=== PATIENT | female | born 1985 | race Two or more races ===

== ENCOUNTER 2017-05-31 16:14 | Inpatient (IN) | payer OTHER ==
--- NOTE | 2017-05-31 16:22 | PDOC ---
Rapid Medical Evaluation Chief Complaint: Vaginal Sxs Time Seen by Provider: 05/31/17 16:20 Medical Evaluation: Allergies Allergy/AdvReac Type Severity Reaction Status Date / Time No Known Allergies Allergy Verified 05/31/17 16:16 05/31/17 16:22 Patient is a 32-year-old female who states she is about 23 weeks , has had care, seen at [facility] who has some mucus discharge from her vagina with a little bit of blood in it. Patient needs further evaluation in labor and delivery. No other acute medical issues Discharge Disposition - Discharge Dispostion Last Admission D/C Date: 02/17/08 - Referrals - Patient Instructions - Post Discharge Activity
[2017-05-31 16:25] VITALS: BMI 31.7
[2017-05-31] MEDS ORDERED: DEXTROSE 5%-LACTATED RINGERS 1,000 ML IV SCH (18:00)
--- NOTE | 2017-05-31 18:15 | HP ---
Past Medical History - Admission History of Present Illness: 32yo EDC 09/29/17 presents with c/o vaginal discharge, mucousy ? blood tinged. PNC at [facility]. Pt reports that she thought she saw some blood tinged things in her discharge. Denies any cramping or pain. Pt states that her care is significant for being followed for shortened cervix and being given progesterone suppositories. History Source: Patient Limitations to Obtaining History: No Limitations - Past Medical History Pulmonary: Yes: Asthma ...: 6 ...Para: 3 ...Term: 1 ...: 2 ...Spon : 0 ...Induced : 2 ...Multiple Gestation: 0 ...LMP: 12/19/16 ... Weeks Gestation by Dates: 23.2 ...EDC by Dates: 09/25/17 - Past Surgical History Past Surgical History: Yes: Hx Myomectomy: No Hx Transabdominal Cerclage: No - Smoking History Smoking history: Never smoked Have you smoked in the past 12 months: No - Alcohol/Substance Use Hx Alcohol Use: No History of Substance Use: reports: None Home Medications - Allergies Allergies/Adverse Reactions: Allergies Allergy/AdvReac Type Severity Reaction Status Date / Time No Known Allergies Allergy Verified 05/31/17 17:37 - Home Medications Home Medications: Ambulatory Orders Vit No.130/Iron/FA [ Vitamins] 1 each PO DAILY 05/31/17 Progesterone,Micronized [Progesterone] 100 VG DAILY 05/31/17 Family Disease History - Family Disease History Family History: Unremarkable Review of Systems - Review of Systems Genitourinary: reports: Discharge Integumentary: reports: No Symptoms Neurological: reports: No Symptoms Endocrine: reports: No Symptoms Hematology/Lymphatic: reports: No Symptoms Pain Intensity: 0 Physical Exam - Maternity Vital Signs: Vital Signs Temperature 98.6 F 05/31/17 17:30 Pulse Rate 130 H 05/31/17 17:30 Respiratory Rate 20 05/31/17 17:30 Blood Pressure 135/75 05/31/17 17:30 O2 Sat by Pulse Oximetry (%) 100 05/31/17 16:16 Constitutional: Yes: Well Nourished, No Distress, Calm Eyes: Yes: WNL, Conjunctiva Clear, EOM Intact HENT: Yes: WNL, Atraumatic, Normocephalic Neck: Yes: WNL, Supple, Trachea Midline Cardiovascular: Yes: WNL, Regular Rate and Rhythm Breast(s): Yes: WNL - Abdominal Exam/OB Fundal Height: 23 Number of Fetuses: Single Contractions: No Monitor Mode: External Heart Rate (range): 140 - Vaginal Exam/OB Vaginal Bleediing: No Speculum Exam: Yes (cervix appears dilated; mucousy discharge) Dilatation (cm): 2 Effacement (%): 40 Amniotic Membrane Status: Intact - Physical Exam Musculoskeletal: Yes: WNL Extremities: Yes: WNL Hemorrhage Risk Assessment - Risk Factors Medium Risk Factors: Yes: Prior , uterine surgery,or multiple laparotomies Risk Score: 1 Risk Level: Medium Risk Problem List - Problems (1) Incompetent cervix during second trimester, antepartum Code(s): O34.32 - MATERNAL CARE FOR CERVICAL INCOMPETENCE, SECOND TRIMESTER (2) labor in second trimester Code(s): O60.02 - LABOR WITHOUT DELIVERY, SECOND TRIMESTER Assessment/Plan 32yo at 23.2 weeks gestation noted to be 2cm dilated with membranes at os. History significant for previous deliveries and being followed for short cervix during this . Plan to admit to L&D; for transfer to [facility]-spoke with Dr. Brooks. Transfer accepted 4gms Magnesium sulfate loading followed by maintenance dose of 2gm IVPB/hr ampicillin 2gms IVPB betamethasone 12 mg IM x1 transfer being arranged. Plan discussed with patient
[2017-05-31] MEDS ORDERED: AMPICILLIN SODIUM 2 GM VIAL ONE (18:17)
[2017-05-31] MEDS ORDERED: BETAMET ACET/BETAMET NA PH 30 MG/5 ML VIAL ONE (18:17)
[2017-05-31] MEDS ORDERED: MAGNESIUM 4GM/H20 - 4 GM/100 ML IVPB IVPB ONE (18:17)
[2017-05-31] MEDS ORDERED: AMPICILLIN - 2 GM in SODIUM CHLORIDE 100 ML IVPB ONE (18:22)
[2017-05-31] MEDS ORDERED: BETAMET ACET/BETAMET NA PH 30 MG/5 ML VIAL IM ONE ×2 (18:22→18:30)
[2017-05-31] MEDS ORDERED: MAGNESIUM SULFATE 20GM/500ML - 20 GM/500 ML INFUS.BAG IVPB SCH (18:30)
[2017-05-31] MEDS ORDERED: MAGNESIUM 4GM/H20 - 4 GM/100 ML IVPB IVPB SCH (18:45)
[2017-05-31] MEDS ORDERED: diphenhydrAMINE HCL 25 MG CAPSULE (FP) PO ONE (19:42)
--- NOTE | 2017-05-31 20:23 | RAPID ---
Physical Examination Vital Signs: Vital Signs Temperature 98.6 F 05/31/17 17:30 Pulse Rate 130 H 05/31/17 17:30 Respiratory Rate 20 05/31/17 17:30 Blood Pressure 135/75 05/31/17 17:30 O2 Sat by Pulse Oximetry (%) 100 05/31/17 16:16 Constitutional: Yes: Well Nourished, No Distress, Calm Eyes: Yes: WNL, Conjunctiva Clear, EOM Intact HENT: Yes: Atraumatic, Normocephalic Neck: Yes: Supple, Trachea Midline Cardiovascular: Yes: Regular Rate and Rhythm Respiratory: Yes: Regular, CTA Bilaterally Gastrointestinal: Yes: Other (23 weeks ). No: Tenderness Extremities: Yes: WNL Edema: No Integumentary: Yes: Other (diffuse uticaria over Left UE, back and stomach) Neurological: Yes: Alert, Oriented Rapid Response - Rapid Response Assessment: 32F , 23 weeks , presenting with new onset uticaria to Left UE, back and stomach. Pt received Ampicillin at 6:20pm. Rapid Response called for new onset rash. Pt appears nontoxic and clinically stable. Pt does have uticaria to Left UE, back and torso. No anaphylaxis or angioedema noted. VSS. Afebrile. Slight tachycardia noted, likely 2/2 cervical dilation/pre-term labor. (Pt currently pending transfer to [facility].) Benadryl given. CBC, BMP ordered. Dr. Cabrales aware.
[2017-05-31 20:26] LABS: BASO % 0.6 % (0-2.0); EOS % 0.1 % (0-4.5); MCH 34.1 pg (25.7-33.7); MCHC 34.5 g/dl (32.0-36.0); MEAN CELL VOLUME 98.8 fl (80-96); MEAN PLT VOLUME 9.2 fl (7.5-11.1); NEUT % 84.5 % (42.8-82.8); PLATELET COUNT 204 K/MM3 (134-434); RDW 14.1 % (11.6-15.6); WHITE BLOOD COUNT 13.2 K/mm3 (4.0-10.0)
[2017-05-31 20:51] LABS: ALBUMIN 3.1 g/dl (3.4-5.0); ALK PHOS 55 U/L (45-117); ANION GAP 10 (8-16); BILIRUBIN,TOTAL 0.4 mg/dL (0.2-1.0); CALCIUM 8.1 mg/dL (8.5-10.1); CO2 21 mmol/L (21-32); CREATININE 0.4 mg/dL (0.55-1.02); GLUCOSE,RANDOM 96 mg/dL (74-106); SGOT/AST 17 U/L (15-37); SGPT/ALT 23 U/L (12-78); TOT PROT 7.2 g/dl (6.4-8.2)
[2017-05-31 21:28] VITALS: BP 124/73; PULSE 123; TEMP 99.2
[2017-05-31 22:20] LABS: URINE MARIJUANA THC NEGATIVE ng/ml (CUTOFF=50)
== END 2017-05-31 20:30 | disposition short-term general hospital (02) | DRG 566 ==
LOC: JER 16:14 → JLDR 17:19
PROVIDERS: ADMIT Obstetrics & Gynecology; ATTEND Obstetrics & Gynecology
DX: O34.32 Maternal care for cervical incompetence, second trimester (principal); O60.02 Preterm labor without delivery, second trimester; O26.872 Cervical shortening, second trimester; Z3A.23 23 weeks gestation of pregnancy; O26.892 Other specified pregnancy related conditions, second trimester; L50.9 Urticaria, unspecified
CPT/HCPCS: 36415; 80053; 80307; 85025; 96372; 99283-25

== ENCOUNTER 2017-06-21 13:44 | Emergency (ER) | payer OTHER ==
[2017-06-21 13:49] VITALS: BP 130/70; PULSE 110; TEMP 98.5; BMI 29.8
[2017-06-21] MEDS ORDERED: ALBUTEROL SO4 2.5/IPRATROPIUM 0.5 INH SOL 3 ML VIAL.NEB. NEB ONE (14:40)
--- NOTE | 2017-06-21 14:46 | PDOC ---
History of Present Illness - General Chief Complaint: Respiratory Stated Complaint: ASTHMA Time Seen by Provider: 06/21/17 14:28 History Source: Patient Exam Limitations: No Limitations - History of Present Illness Initial Comments: 06/21/17 14:41 Complaints of cough and cold symptoms for the past few weeks. Is with a very premature , born at 23 weeks. States developed a cold while in the hospital is progressively worsened to where she feels tightness and wheezing. Denies fever, or phlegm production but states is having difficulty with wheezing Timing/Duration: reports: changing over time, getting worse Severity: reports: mild, moderate Associated Symptoms: reports: denies symptoms, cough, fever/chills. denies: headache Past History - Travel Traveled outside of the country in the last 30 days: No Close contact w/someone who was outside of country & ill: No - Past Medical History Allergies/Adverse Reactions: Allergies Allergy/AdvReac Type Severity Reaction Status Date / Time Penicillins Allergy Unknown Verified 06/21/17 14:21 ampicillin Allergy Verified 06/21/17 13:50 Home Medications: Ambulatory Orders Vit No.130/Iron/Folic [ Vitamins] 1 each PO DAILY 05/31/17 Albuterol 0.083% Nebulizer Elle [Ventolin 0.083% Nebulizer Soln -] 1 neb NEB Q4H PRN #30 vial 06/21/17 Ferrous Sulfate 325 mg PO ASDIR 06/21/17 Asthma: Yes Cancer: No Cardiac Disorders: No COPD: No Diabetes: No HTN: No Hypercholesterolemia: Yes Seizures: No Thyroid Disease: No - Surgical History Abdominal Surgery: No - Reproductive History (#): 4 Para: 3 Cervical CA: No Dysfunctional Uterine Bleeding: No Ectopic : No Endometrial CA: No Polycystic Ovaries: No Therapeutic (s) & number: Yes Tubal Ligation: No Spontaneous : 0 - Immunization History Immunization Up to Date: Yes - Suicide/Smoking/Psychosocial Hx Smoking History: Never smoked Have you smoked in the past 12 months: No Hx Alcohol Use: No Drug/Substance Use Hx: No Substance Use Type: None Hx Substance Use Treatment: No Review of Systems - Review of Systems Able to Perform ROS?: Yes Is the patient limited Romanian proficient: Yes Constitutional: Yes: Symptoms Reported, See HPI, Malaise. No: Chills, Fever HEENTM: Yes: Symptoms Reported, See HPI, Nose Congestion. No: Throat Pain Respiratory: Yes: Symptoms reported, See HPI, Cough, Shortness of Breath, Wheezing Musculoskeletal: Yes: Symptoms Reported Integumentary: Yes: Symptoms Reported, See HPI Neurological: Yes: See HPI. No: Symptoms reported All Other Systems: Reviewed and Negative *Physical Exam - Vital Signs Last Vital Signs Temp Pulse Resp BP Pulse Ox 98.5 F 110 H 18 130/70 99 06/21/17 13:47 06/21/17 13:47 06/21/17 13:47 06/21/17 13:47 06/21/17 13:47 - Physical Exam General Appearance: Yes: Nourished, Appropriately Dressed, Apparent Distress. No: Mild Distress HEENT: positive: KAYLEN, TMs Normal. negative: Normal ENT Inspection, Pharynx Normal (congested but landmarks easily visualized) Neck: positive: Supple. negative: Tender, Lymphadenopathy (R), Lymphadenopathy (L) Respiratory/Chest: positive: Lungs Clear, Normal Breath Sounds Cardiovascular: positive: Regular Rate Gastrointestinal/Abdominal: positive: Soft. negative: Tender Extremity: positive: Normal Capillary Refill, Normal Inspection Integumentary: positive: Normal Color, Dry, Warm, Pale Neurologic: positive: wall washer II-XII NML intact, Fully Oriented, Alert, Normal Mood/ Affect, Normal Response Progress Note - Progress Note Progress Note: Common cold with asthmatic times symptoms, much improved after 1 DuoNeb. As patient is recently and breast-feeding will hold on prednisone but will continue albuterol nebs at home and follow up with OB/PMD for further treatment as needed. *DC/Admit/Observation/Transfer Diagnosis at time of Disposition: URI with cough and congestion - Discharge Dispostion Disposition: HOME Condition at time of disposition: Stable Admit: No - Prescriptions Prescriptions: Albuterol 0.083% Nebulizer Elle [Ventolin 0.083% Nebulizer Soln -] 1 neb NEB Q4H PRN #30 vial PRN Reason: Cough - Referrals - Patient Instructions Printed Discharge Instructions: DI for Common Cold Additional Instructions: Rest, drink lots of fluids: Teas, water, soups, Pedialyte Saltwater gargles Steamy showers/seem to face break up mucus Avoid contact with others until fevers and cough resolved Lots of handwashing and good hygiene Continue [id number] medications for symptomatic relief Tylenol or Motrin for fever and pain Continue albuterol nebulizers for the next 2 day then as needed for continued cough Followup with private physician in one to 2 days as needed Return to emergency department for worsened symptoms, fevers, dehydration - Post Discharge Activity
== END 2017-06-21 15:27 | disposition home or self-care (01) ==
LOC: JERFT 13:44
PROC: 3E0F7GC Introduction of Other Therapeutic Substance into Respiratory Tract, Via Natural or Artificial Opening (ICD-10-PCS; principal; 2017-06-21)
DX: O99.89 Other specified diseases and conditions complicating pregnancy, childbirth and the puerperium (principal); J06.9 Acute upper respiratory infection, unspecified
CPT/HCPCS: 94640; 99281-25

== ENCOUNTER 2017-07-18 19:42 | Emergency (ER) | payer OTHER ==
[2017-07-18 20:01] VITALS: BP 119/82; PULSE 87; TEMP 98.8; BMI 29.2
[2017-07-18] MEDS ORDERED: IBUPROFEN 400 MG TABLET (FP) PO ONE ×2 (21:27→21:31)
--- NOTE | 2017-07-18 21:28 | PDOC ---
History of Present Illness <Lauro Baltazar - Last Filed: 07/18/17 23:12> - General History Source: Patient Exam Limitations: No Limitations - History of Present Illness Initial Comments: 07/19/17 00:44 Patient is a 32 year old female with a significant past medical history of asthma, hypertension and thyroid disorder who presents to the ED with complaints of bilateral lower extremity pain that began yesterday morning. Pt notes she has been having brief episode of blurry vision for a few secnods, she put on her glasses and her vision improved. She endorses having a mild headache c/w prior headaches 08/23, nonradiationg, no associated numbness/tingling/ weakness, neck pain, fever/chills. She aslo endorses feeling b/l calf pain since friday - she does endorse wlaking up 5 flights of stairs on friday. She denies any associated cp, sob, hemptysis, swelling of her legs. Denies contact with sick individuals, out of state traveling. Denies trauma to affected area. Denies any other symptoms. Allergies: Penicillin, Ampicillin. Social history: She denies tobacco, ETOH and recreational drug use Surgical history: None PMD: Dr. Josefina Lozano / [phone] <Rik Sr - Last Filed: 07/19/17 00:45> - General Chief Complaint: Blurry Vision Stated Complaint: PAIN Time Seen by Provider: 07/18/17 19:57 Past History - Past Medical History Asthma: Yes Cancer: No Cardiac Disorders: No COPD: No Diabetes: No HTN: No Hypercholesterolemia: Yes Seizures: No Thyroid Disease: Yes - Surgical History Abdominal Surgery: No - Reproductive History (#): 4 Para: 3 Cervical CA: No Dysfunctional Uterine Bleeding: No Ectopic : No Endometrial CA: No Polycystic Ovaries: No Therapeutic (s) & number: Yes Tubal Ligation: No Spontaneous : 0 - Immunization History Immunization Up to Date: Yes - Suicide/Smoking/Psychosocial Hx Smoking History: Never smoked Have you smoked in the past 12 months: No Information on smoking cessation initiated: No Hx Alcohol Use: No Drug/Substance Use Hx: No Substance Use Type: None Hx Substance Use Treatment: No <Lauro Baltazar - Last Filed: 07/18/17 23:12> <Rik Sr - Last Filed: 07/19/17 00:45> - Past Medical History Allergies/Adverse Reactions: Allergies Allergy/AdvReac Type Severity Reaction Status Date / Time Penicillins Allergy Unknown Verified 07/18/17 20:01 ampicillin Allergy Verified 07/18/17 20:01 Home Medications: Ambulatory Orders Vit No.130/Iron/Folic [ Vitamins] 1 each PO DAILY 05/31/17 Albuterol 0.083% Nebulizer Elle [Ventolin 0.083% Nebulizer Soln -] 1 neb NEB Q4H PRN #30 vial 06/21/17 Ferrous Sulfate 325 mg PO ASDIR 06/21/17 Review of Systems - Review of Systems Able to Perform ROS?: Yes Comments:: 07/19/17 00:44 CONSTITUTIONAL: No reported: Fever, Chills, Diaphoresis, Generalized Weakness, Malaise, Loss of Appetite HEENT: No reported: Rhinorrhea, Nasal Congestion, Throat Pain, Throat Swelling, Difficulty Swallowing, Mouth Swelling, Ear Pain, Eye Pain, Visual Changes CARDIOVASCULAR: No reported: Chest Pain, Syncope, Palpitations, Irregular Heart Rate, Lightheadedness, Peripheral Edema RESPIRATORY: No reported: Cough, Shortness of Breath, SOB with Exertion, Orthopnea, Wheezing , Stridor, Hemoptysis GASTROINTESTINAL: No reported: Abdominal pain, Abdominal Distension, Nausea, Vomiting, Diarrhea, Constipation, Melena, Hematochezia GENITOURINARY: No reported: Dysuria, Frequency, Urgency, Hesitancy, Flank Pain, Genital Pain MUSCULOSKELETAL: +Bilateral leg pain. No reported: Arthralgia, Joint Swelling, Back pain, Neck Pain SKIN: No reported: Rash, Itching, Pallor HEMATOLOGIC/IMMUNOLOGIC: No reported: Easy Bleeding, Easy Bruising, Lymphadenopathy, Frequent infections ENDOCRINE: No reported: Unexplained Weight Gain, Unexplained Weight Loss, Heat Intolerance , Cold Intolerance NEUROLOGIC: No reported: Headache, Focal Weakness, Paresthesias, Vertigo, Lightheadedness, Unsteady Gait, Seizure, Mental Status Changes, Incontinence PSYCHIATRIC: No reported: Anxiety, Depression All Other Systems: Reviewed and Negative <Rik Sr - Last Filed: 07/19/17 00:45> *Physical Exam - Vital Signs Last Vital Signs Temp Pulse Resp BP Pulse Ox 98.8 F 87 17 119/82 100 07/18/17 19:58 07/18/17 19:58 07/18/17 19:58 07/18/17 19:58 07/18/17 19:58 <Lauro Baltazar - Last Filed: 07/18/17 23:12> - Vital Signs Last Vital Signs Temp Pulse Resp BP Pulse Ox 98.8 F 87 17 119/82 100 07/18/17 19:58 07/18/17 19:58 07/18/17 19:58 07/18/17 19:58 07/18/17 19:58 - Physical Exam Comments: 07/19/17 00:44 GENERAL: The patient is awake, alert, and fully oriented, Nontoxic - in no acute distress. HEAD: Normocephalic, atraumatic. EYES: extraocular movements intact, sclera anicteric, conjunctiva clear. Pupils 4mm and symmetrically eractive, Snellens: 25/20 b/l, 25/20 R, 25/20 L corrected ENT: Normal voice, Moist mucous membranes. NECK: Normal range of motion, supple LUNGS: Breath sounds equal, clear to auscultation bilaterally. No wheezes, no rhonchi, no rales. HEART: Regular rate and rhythm, normal S1 and S2 without murmur, rub or gallop. ABDOMEN: Soft, nontender, normoactive bowel sounds. No guarding, no rebound. No CVA tenderness EXTREMITIES: Normal range of motion, no edema. mild calf tenderness, negative homans sigs b/lm no signs of erythema, wamrth, induration. NEUROLOGICAL: No facial assymetry, Normal speech, PSYCH: Normal mood, normal affect. SKIN: Warm, Dry, normal turgor, <Rik Sr - Last Filed: 07/19/17 00:45> ED Treatment Course - Medications Given in the ED: ED Medications Discontinued Medications Generic Name Dose Route Start Last Admin Trade Name Freq PRN Reason Stop Dose Admin Ibuprofen 400 mg 07/18/17 21:27 07/18/17 21:32 Motrin - PO 07/18/17 21:28 400 mg ONCE ONE Administration <Rik Sr - Last Filed: 07/19/17 00:45> Medical Decision Making - Medical Decision Making 07/18/17 21:28 32y F approx 6 weeks s/p delivery of a premie presents with complaing of b/l calf pain/cramps since yesterday (preceeding day had been walking up 5 flights of stairs), no associaet cp, sob, palpitations, hemoptysis. Pt also with complaint of brief blurry vision for a few seconds follow by a mild headache ( headaces/vision cw prior episodes that she gets occsaoinally that she attributes to migrain headaches will reassess A portion of this note was documented by scribe services under my direction. I have reviewed the details of the note, within reason, and agree with the documentation with the following case summary and management plan written by me 07/18/17 23:12 pt feeling improved headache resolved b/l calf pain improved I discussed the physical exam findings, ancillary test results and final diagnoses with the patient. I answered all of the patient's questions. The patient was satisfied with the care received and felt comfortable with the discharge plan and treatment plan. The patient will call their primary care physician within 24 hours to arrange follow-up and will return to the Emergency Department with any new, persistent or worsening symptoms. <Lauro Baltazar - Last Filed: 07/18/17 23:12> *DC/Admit/Observation/Transfer - Discharge Dispostion Admit: No <Lauro Baltazar - Last Filed: 07/18/17 23:12> - Attestations Scribe Attestion: 07/19/17 00:45 Documentation prepared by Rik Sr, acting as medical office secretary for Lauro Baltazar MD, /DO. <Rik Sr - Last Filed: 07/19/17 00:45> Diagnosis at time of Disposition: Bilateral calf pain, Headache - Discharge Dispostion Disposition: HOME Condition at time of disposition: Improved - Referrals Referrals: [facility] [place] [Provider Group] - Patient Instructions Printed Discharge Instructions: DI for Migraine Additional Instructions: Return to the emergency department immediately with ANY new, persistent or worsening symptoms including worsening headache, vision changes, numbness/ tingling/weakness, persistent nausea and vomiting or any other concerns. Make sure you are getting adaqute sleep and hydration. You MUST call and follow up with your doctor tomorrow for further evaluation of your symptoms. Your emergency department visit is not complete without a followup with your doctor for reevaluation. Results were discussed with you. Please make sure your doctor reviews the results of your emergency evaluation. If you had any xrays during your visit, it was read preliminarily by myself, a Radiologist will review it and if there are any additional findings we will call you. Print Language: CITIZEN OF [place]
== END 2017-07-18 23:18 | disposition home or self-care (01) ==
LOC: JER 19:42
DX: O90.89 Other complications of the puerperium, not elsewhere classified (principal); M79.605 Pain in left leg; M79.604 Pain in right leg; R51 Headache
CPT/HCPCS: 99283-25

== ENCOUNTER 2024-08-30 18:55 | Emergency (ER) | payer OTHER ==
[2024-08-30 19:09] VITALS: BP 121/85; PULSE 76; RESP 18; TEMP 97.8; BMI 34.3
[2024-08-30 21:28] LABS: BASO % 0.5 % (0-2.0); EOS % 1.5 % (0-4.5); HEMATOCRIT 35.9 % (32.4-45.2); HEMOGLOBIN 12.7 GM/dL (10.7-15.3); LYMPH % 39.6 % (8-40); MCH 33.9 pg (25.7-33.7); MCHC 35.3 g/dl (32.0-36.0); MEAN CELL VOLUME 95.9 fl (80-96); MEAN PLT VOLUME 8.5 fl (7.5-11.1); MONO % 9.7 % (3.8-10.2); NEUT % 48.7 % (42.8-82.8); PLATELET COUNT 322 10^3/uL (134-434); RBC 3.75 M/mm3 (3.60-5.2); RDW 12.8 % (11.6-15.6); WHITE BLOOD COUNT 6.7 K/mm3 (4.0-10.0)
[2024-08-30 21:46] LABS: POTASSIUM 3.5 mmol/L (3.5-5.1)
[2024-08-30 21:49] LABS: ALBUMIN 3.9 g/dl (3.4-5.0)
[2024-08-30 21:52] LABS: CREATININE 0.7 mg/dL (0.55-1.3)
[2024-08-30 21:53] LABS: BILIRUBIN,TOTAL 0.6 mg/dL (0.2-1); TOT PROT 7.7 g/dl (6.4-8.2)
== END 2024-08-30 22:08 | disposition home or self-care (01) ==
LOC: JER 18:55 → JERFT 18:55 → JER 22:08
DX: R07.89 Other chest pain (principal)
CPT/HCPCS: 36415; 71046-TC-FY; 80053; 82550; 84484; 85025; 93005; 93010; 99285-25

== ENCOUNTER 2024-10-27 16:47 | Emergency (ER) | payer OTHER ==
[2024-10-27 16:53] VITALS: BP 124/62; RESP 18; TEMP 98.4; BMI 35.0
[2024-10-27 17:19] VITALS: PULSE 79
[2024-10-27] MEDS ORDERED: KETOROLAC TROMETHAMINE 30 MG/1 ML VIAL ONE (17:26)
[2024-10-27] MEDS: KETOROLAC TROMETHAMINE 30 MG/1 ML VIAL IM ONE (17:33)
== END 2024-10-27 20:05 | disposition home or self-care (01) ==
LOC: JER 16:47 → JERFT 16:47
PROC: 3E0233Z Introduction of Anti-inflammatory into Muscle, Percutaneous Approach (ICD-10-PCS; principal; 2024-10-27)
DX: M25.511 Pain in right shoulder (principal)
CPT/HCPCS: 73030-TC-RT-FY; 99284-25

== ENCOUNTER 2024-10-29 12:19 | Emergency (ER) | payer OTHER ==
[2024-10-29 12:26] VITALS: BP 105/60; PULSE 71; RESP 18; TEMP 98.6; BMI 36.1
[2024-10-29] MEDS ORDERED: CIPROFLOXACIN 250 MG TABLET (RESTRICTED TO ID) PO ONE (13:45)
[2024-10-29] MEDS ORDERED: IBUPROFEN 400 MG TABLET (FP) PO ONE (13:55)
[2024-10-29] MEDS: IBUPROFEN 400 MG TABLET (FP) PO ONE (14:00)
== END 2024-10-29 14:41 | disposition home or self-care (01) ==
LOC: JERFT 12:19
DX: H66.91 Otitis media, unspecified, right ear (principal)
CPT/HCPCS: 99283-25

== ENCOUNTER 2024-11-02 17:29 | Emergency (ER) | payer OTHER ==
[2024-11-02 17:42] VITALS: BP 128/72; PULSE 80; RESP 20; TEMP 99; BMI 36.1
== END 2024-11-02 18:49 | disposition home or self-care (01) ==
LOC: JER 17:29
DX: R10.33 Periumbilical pain (principal); R43.2 Parageusia
CPT/HCPCS: 99283-25

== ENCOUNTER 2025-01-20 15:33 | Emergency (ER) | payer OTHER ==
[2025-01-20 15:50] VITALS: BP 133/69; PULSE 86; RESP 18; TEMP 98.8; BMI 35.4
[2025-01-20] MEDS ORDERED: ACETAMINOPHEN 325 MG TABLET (FP) ONE (16:44)
[2025-01-20] MEDS: ACETAMINOPHEN 325 MG TABLET (FP) PO ONE (16:55)
[2025-01-20 17:26] LABS: ABSOLUTE IMMATURE GRANULOCYTES 0.03 x10^3/uL (0.0-0.031); BASOPHILS # 0.02 x10^3/uL (0.01-0.08); EOSINOPHIL % 0.7 % (0.7-5.8); EOSINOPHILS # 0.05 x10^3/uL (0.04-0.36); MCHC 34.7 g/dl (32.2-35.5); MEAN CELL VOLUME 95.8 fl (79.4-94.8); MEAN PLT VOLUME 10.5 fl (9.4-12.3); MONOCYTE # 0.65 x10^3/uL (0.24-0.86); MONOCYTE % 9.0 % (4.7-12.5); RDW 12.4 % (12.1-16.8)
[2025-01-20 17:36] LABS: CO2 27.0 mmol/L (21-32); GLUCOSE,RANDOM 90.0 mg/dL (74-106)
[2025-01-20 17:39] LABS: CREATININE 0.8 mg/dL (0.55-1.3); SGOT/AST 24.0 U/L (15-37); SGPT/ALT 25.0 U/L (13-61)
[2025-01-20 17:41] LABS: TOT PROT 8.4 g/dl (6.4-8.2)
[2025-01-20 17:42] LABS: ALK PHOS 56.0 U/L (45-117)
[2025-01-20 17:56] LABS: EPI CELLS >36 /uL (0-25.1); HYALINE CASTS 0 /uL (0-3.1); URINE APPEARANCE CLOUDY; URINE BACTERIA 826 /uL (0-1359); URINE BILIRUBIN NEGATIVE (NEGATIVE); URINE COLOR YELLOW; URINE GLUCOSE (UA) NEGATIVE (NEGATIVE); URINE KETONE NEGATIVE (NEGATIVE); URINE LEUK ESTERASE TRACE (NEGATIVE); URINE NITRITE NEGATIVE (NEGATIVE); URINE PROTEIN NEGATIVE (NEGATIVE); URINE RBC 11 /uL (0-23.9); URINE UROBILINOGEN 0.2 mg/dL (0.2-1.0); URINE WBC 6 /uL (0-25.8)
[2025-01-23 03:30] LABS: HCV DIAGNOSTIC IN-HOUSE W/RFLX NON-REACTIVE (NONREACTIVE)
[2025-01-23 14:36] LABS: HIV INTERPRETATION NEGATIVE (NEGATIVE)
== END 2025-01-20 18:18 | disposition home or self-care (01) ==
LOC: JER 15:33
DX: R42 Dizziness and giddiness (principal); H53.8 Other visual disturbances
CPT/HCPCS: 36415; 76512; 80053; 81003; 84484; 84703; 85025; 86803; 87086; 87389; 93005; 93010; 99285-25

== ENCOUNTER 2025-03-05 21:46 | Emergency (ER) | payer OTHER ==
[2025-03-05 21:53] VITALS: RESP 18; TEMP 98.2; BMI 35.0
[2025-03-05] MEDS ORDERED: ONDANSETRON 4 MG/2 ML VIAL ONE (22:44)
[2025-03-05] MEDS ORDERED: FAMOTIDINE 20 MG/50 ML IVPB 20 MG/50 ML MG IVPB ONE (22:44)
[2025-03-05] MEDS ORDERED: MAG HYDROX/AL HYDROX/SIMETH 30 ML UNIT-DOSE CUP ONE (22:44)
[2025-03-05] MEDS ORDERED: ACETAMINOPHEN INJECTION 100 ML ONE (22:44)
[2025-03-05] MEDS: MAG HYDROX/AL HYDROX/SIMETH 30 ML UNIT-DOSE CUP PO ONE (22:55)
[2025-03-05] MEDS: FAMOTIDINE 20 MG/50 ML IVPB 20 MG/50 ML MG IVPB ONE (22:55)
[2025-03-05] MEDS: ONDANSETRON 4 MG/2 ML VIAL IVPUSH ONE (22:55)
[2025-03-05] MEDS: LACTATED RINGERS SOLUTION 1000 ML INFUS.BAG IV ONE (22:55)
[2025-03-05] MEDS: ACETAMINOPHEN 1000 MG/100 ML BAG IVPB ONE (23:02)
[2025-03-05 23:17] LABS: MCHC 34.9 g/dl (32.2-35.5); MEAN CELL VOLUME 96.7 fl (79.4-94.8); MEAN PLT VOLUME 10.7 fl (9.4-12.3); RDW 12.4 % (12.1-16.8)
[2025-03-05 23:27] LABS: INR 0.94 (0.83-1.09); PROTHROMBIN TIME (PATIENT) 10.3 SEC (9.7-13.0)
[2025-03-05 23:30] LABS: ACTIVATED PTT 30.0 SECONDS (25.2-36.5)
[2025-03-05 23:43] LABS: GLUCOSE,RANDOM 90.0 mg/dL (74-106); TOT PROT 8.4 g/dl (6.4-8.2)
[2025-03-05 23:44] LABS: CO2 24.0 mmol/L (21-32)
[2025-03-05 23:46] LABS: ALK PHOS 72.0 U/L (40-150)
[2025-03-05 23:48] LABS: SGOT/AST 28.0 U/L (5-34); SGPT/ALT 20.0 U/L (0-55)
[2025-03-05 23:49] LABS: CREATININE 0.61 mg/dL (0.55-1.3)
[2025-03-06] MEDS ORDERED: DEXAMETHASONE SOD PHOSPHATE 10 MG/1 ML VIAL ONE ×2 (00:19→00:20)
[2025-03-06] MEDS ORDERED: KETOROLAC TROMETHAMINE 15 MG/ML VIAL ONE (00:20)
[2025-03-06] MEDS: DEXAMETHASONE SOD PHOSPHATE 10 MG/1 ML VIAL IVPUSH ONE (00:21)
[2025-03-06] MEDS: KETOROLAC TROMETHAMINE 15 MG/ML VIAL IVPUSH ONE (00:21)
[2025-03-06 01:08] VITALS: BP 112/71; PULSE 64
== END 2025-03-06 01:09 | disposition home or self-care (01) ==
LOC: JER 21:46
PROC: 3E033GC Introduction of Other Therapeutic Substance into Peripheral Vein, Percutaneous Approach (ICD-10-PCS; principal; 2025-03-05)
PROC: 3E033NZ Introduction of Analgesics, Hypnotics, Sedatives into Peripheral Vein, Percutaneous Approach (ICD-10-PCS; 2025-03-05)
PROC: 3E033GC Introduction of Other Therapeutic Substance into Peripheral Vein, Percutaneous Approach (ICD-10-PCS; 2025-03-05)
PROC: 3E0333Z Introduction of Anti-inflammatory into Peripheral Vein, Percutaneous Approach (ICD-10-PCS; 2025-03-06)
PROC: 3E033GC Introduction of Other Therapeutic Substance into Peripheral Vein, Percutaneous Approach (ICD-10-PCS; 2025-03-06)
DX: K29.70 Gastritis, unspecified, without bleeding (principal); M54.50 Low back pain, unspecified; G89.29 Other chronic pain; R07.9 Chest pain, unspecified; K30 Functional dyspepsia
CPT/HCPCS: 36415; 71045-TC-FY; 80053; 83690; 83735; 84484; 85025; 85610; 85730; 93005; 93010; 99285-25; J1100

== ENCOUNTER 2025-03-28 14:37 | Emergency (ER) | payer OTHER ==
[2025-03-28 14:51] VITALS: BP 136/71; PULSE 86; RESP 18; TEMP 98.2; BMI 36.1
[2025-03-28] MEDS ORDERED: PANTOPRAZOLE 40 MG TABLET PO ONE (15:15)
[2025-03-28] MEDS ORDERED: MAG HYDROX/AL HYDROX/SIMETH 30 ML UNIT-DOSE CUP ONE (15:15)
[2025-03-28] MEDS ORDERED: FAMOTIDINE 20 MG TABLET ONE (15:15)
[2025-03-28] MEDS ORDERED: KETOROLAC TROMETHAMINE 30 MG/1 ML VIAL ONE (15:15)
[2025-03-28] MEDS ORDERED: LIDOCAINE 5% TOPICAL PATCH ONE (15:16)
[2025-03-28] MEDS: KETOROLAC TROMETHAMINE 30 MG/1 ML VIAL IM ONE (15:24)
[2025-03-28] MEDS: LIDOCAINE 5% TOPICAL PATCH TP ONE (15:24)
[2025-03-28] MEDS: FAMOTIDINE 20 MG TABLET PO ONE (15:25)
[2025-03-28] MEDS: PANTOPRAZOLE 40 MG TABLET PO ONE (15:25)
[2025-03-28] MEDS: MAG HYDROX/AL HYDROX/SIMETH 30 ML UNIT-DOSE CUP PO ONE (15:25)
[2025-03-28] MEDS ORDERED: LIDOCAINE PATCH REMOVAL MC SCH (22:00)
== END 2025-03-28 16:43 | disposition home or self-care (01) ==
LOC: JER 14:37
PROC: 3E0233Z Introduction of Anti-inflammatory into Muscle, Percutaneous Approach (ICD-10-PCS; principal; 2025-03-28)
DX: M54.50 Low back pain, unspecified (principal)
CPT/HCPCS: 96372; 99284-25

== ENCOUNTER 2025-04-03 13:47 | Emergency (ER) | payer OTHER ==
[2025-04-03 14:00] VITALS: BP 114/58; PULSE 74; RESP 18; TEMP 98.5; BMI 36.1
[2025-04-03] MEDS ORDERED: NAPROXEN 500 MG TABLET ONE (16:12)
[2025-04-03] MEDS: NAPROXEN 500 MG TABLET PO ONE (16:17)
== END 2025-04-03 16:17 | disposition home or self-care (01) ==
LOC: JERFT 13:47
DX: M72.2 Plantar fascial fibromatosis (principal); M79.672 Pain in left foot
CPT/HCPCS: 73630-TC-LT; 99283-25

== ENCOUNTER 2025-04-09 20:24 | Emergency (ER) | payer OTHER ==
[2025-04-09 20:30] VITALS: RESP 18; BMI 36.1
[2025-04-09 21:57] LABS: ABSOLUTE IMMATURE GRANULOCYTES 0.03 x10^3/uL (0.0-0.031); BASOPHILS # 0.04 x10^3/uL (0.01-0.08); EOSINOPHIL % 1.3 % (0.7-5.8); EOSINOPHILS # 0.10 x10^3/uL (0.04-0.36); MCHC 35.0 g/dl (32.2-35.5); MEAN CELL VOLUME 98.2 fl (79.4-94.8); MEAN PLT VOLUME 10.4 fl (9.4-12.3); MONOCYTE # 1.15 x10^3/uL (0.24-0.86); MONOCYTE % 15.1 % (4.7-12.5); RDW 12.7 % (12.1-16.8)
[2025-04-09] MEDS ORDERED: ACETAMINOPHEN INJECTION 100 ML ONE (22:03)
[2025-04-09] MEDS: ACETAMINOPHEN 1000 MG/100 ML BAG IVPB ONE (22:10)
[2025-04-09] MEDS: SODIUM CHLORIDE 0.9% 500 ML INFUS.BAG IV ONE (22:10)
[2025-04-09 22:19] LABS: GLUCOSE,RANDOM 89.0 mg/dL (74-106); TOT PROT 8.3 g/dl (6.4-8.2)
[2025-04-09 22:21] LABS: CO2 22.0 mmol/L (21-32)
[2025-04-09 22:22] LABS: ALK PHOS 60.0 U/L (40-150)
[2025-04-09 22:25] LABS: CREATININE 0.64 mg/dL (0.55-1.3); SGOT/AST 46.0 U/L (5-34); SGPT/ALT 24.0 U/L (0-55)
[2025-04-09 22:45] LABS: HCV DIAGNOSTIC IN-HOUSE W/RFLX NON-REACTIVE (NONREACTIVE)
[2025-04-10 00:10] LABS: HIV INTERPRETATION NEGATIVE (NEGATIVE)
[2025-04-10] MEDS ORDERED: FLUCONAZOLE 150 MG TABLET PO ONE (00:30)
[2025-04-10] MEDS ORDERED: AZITHROMYCIN 500 MG TABLET ONE (00:30)
[2025-04-10 00:52] VITALS: BP 128/82; PULSE 66; TEMP 97.9
[2025-04-10] MEDS: AZITHROMYCIN 500 MG TABLET PO ONE (00:54)
[2025-04-10] MEDS: FLUCONAZOLE 50 MG TABLET PO ONE (00:54)
== END 2025-04-10 01:34 | disposition home or self-care (01) ==
LOC: JER 20:24
PROC: 3E033NZ Introduction of Analgesics, Hypnotics, Sedatives into Peripheral Vein, Percutaneous Approach (ICD-10-PCS; principal; 2025-04-09)
DX: J18.9 Pneumonia, unspecified organism (principal); R10.31 Right lower quadrant pain; R10.12 Left upper quadrant pain; R50.9 Fever, unspecified; R05.9 Cough, unspecified; R19.7 Diarrhea, unspecified; R07.89 Other chest pain
CPT/HCPCS: 36415; 71046-TC-FY; 74177-TC; 80053; 83735; 84484; 84703; 85025; 86803; 87081; 87389; 87491; 87591; 87637-QW; 87661; 93005; 93010; 99285-25; Q9967